=== PATIENT | female | born 1955 | race Caucasian/White ===

== ENCOUNTER 2018-08-12 19:34 | Emergency (ER) | payer SELFPAY ==
[2018-08-12 22:32] LABS: ADD MAN DIFF? NO
[2018-08-12 22:34] LABS: WHITE BLOOD COUNT 6.5 10^3/ul (4.8-10.8)
[2018-08-12 22:34] LABS: BASOPHILS % 0.5 % (0.0-2.0); EOSINOPHILS # 0.2 10^3/ul (0.0-0.5); EOSINOPHILS % 3.1 % (0.0-7.0); HEMATOCRIT 41.8 % (37.0-47.0); HEMOGLOBIN 13.5 g/dl (12.0-16.0); LYMPHOCYTES # 1.7 10^3/ul (0.8-2.9); LYMPHOCYTES % 26.1 % (15.0-51.0); MEAN CORPUSCULAR HEMOGLOBIN 29.3 pg (29.0-33.0); MEAN CORPUSCULAR HGB CONC 32.3 g/dl (32.0-37.0); MEAN CORPUSCULAR VOLUME 90.9 fl (82.0-101.0); MONOCYTE # 0.5 10^3/ul (0.3-0.9); MONOCYTES % 8.3 % (0.0-11.0); NEUTROPHILS % 61.7 % (39.0-77.0); PLATELET COUNT 158 10^3/UL (140-415); RED CELL DISTRIBUTION WIDTH 13.1 % (11.5-14.5)
[2018-08-12] MEDS: LORAZEPAM 1 MG TAB PO (22:49)
[2018-08-12 22:55] LABS: ANION GAP 8 (5-13); BLOOD UREA NITROGEN 20 mg/dl (7-20); CALCIUM 9.7 mg/dl (8.4-10.2); CARBON DIOXIDE 26 mmol/L (21-31); CHLORIDE 106 mmol/L (97-110); CREATININE 0.81 mg/dl (0.44-1.00); Estimated GFR > 60 mL/min (>60); GLUCOSE 92 mg/dl (70-220); SODIUM 140 mmol/L (135-144)
[2018-08-12 23:06] LABS: TROPONIN-I 0.013 ng/ml (0.000-0.120)
[2018-08-13 00:06] LABS: ETHANOL < 10.0 mg/dl (0-0)
[2018-08-13] MEDS: NICARDipine HCL 30 MG CAPSULE PO (00:12)
== END 2018-08-13 01:56 | disposition home or self-care (01) ==
LOC: E/R 08-13 01:56
DX: F41.9 Anxiety disorder, unspecified (principal); R00.2 Palpitations; R20.2 Paresthesia of skin; R06.4 Hyperventilation; I10 Essential (primary) hypertension; R40.2142 Coma scale, eyes open, spontaneous, at arrival to emergency department; R40.2252 Coma scale, best verbal response, oriented, at arrival to emergency department; R40.2362 Coma scale, best motor response, obeys commands, at arrival to emergency department; F17.210 Nicotine dependence, cigarettes, uncomplicated; Z91.14 Patient's other noncompliance with medication regimen
CPT/HCPCS: 36415; 71045; 80048; 80307; 84484; 85025; 93005; 99285-25

== ENCOUNTER 2018-10-10 14:05 | Emergency (ER) | payer SELFPAY ==
[2018-10-10] MEDS: HYDROCODONE/APAP (5/325) TAB PO (17:23)
== END 2018-10-10 19:09 | disposition home or self-care (01) ==
LOC: FTE 14:05
DX: R51 Headache (principal); I10 Essential (primary) hypertension
CPT/HCPCS: 70450; 99284-25